=== PATIENT | male | born 1995 | race Caucasian/White ===

== ENCOUNTER 2024-10-31 23:30 | Emergency (ER) | payer BC, SELFPAY ==
[2024-10-31 23:31] VITALS: BMI 33.9
[2024-11-01 00:05] VITALS: BP 143/84; PULSE 64; RESP 18; TEMP 37.1; O2SAT 99
--- NOTE | 2024-11-01 00:30 | EDNOTE_ITS ---
<Statement entered by Yasmin Rinaldi MD - 11/01/24 05:24> As co-signing physician, I was present and available for consult prn. I concur with the plan and care as documented by the midlevel provider. ED Back Injury Pain RME/HPI General Chief Complaint: Back Pain/Injury Stated Complaint: BACK PAIN Time Seen by Provider: 11/01/24 00:11 Source: patient Arrival date/time: 10/31/24 23:30 29-year-old male with past medical history of chronic back [facility] complaining of lower back pain that radiates down towards his left leg. Patient denies any recent injury or trauma. Patient reports has pending x-ray of lower back scheduled for later today. Patient denies any fever, chills, vomiting, bowel or bladder dysfunction, saddle anesthesia, or any other associated symptom. Mode of arrival: ambulatory Limitations: no limitations Related Data Previous Rx's ?Medication ?Instructions ?Recorded cyclobenzaprine 10 mg tablet 10 mg PO TID PRN muscle s pasm #10 11/01/24 tabs ibuprofen 600 mg tablet 600 mg PO Q8H PRN pain #20 t abs 11/01/24 Allergies Allergy/AdvReac Type Severity Reaction Status Date / Time No Known Allergies Allergy Verified 10/31/24 23:31 Review of Systems Review of Systems Systems Reviewed: All systems reviewed, normal except as documented Constitutional Constitutional: Reports system reviewed and no additional complaints, except as documented, Denies body ache(s), Denies chills and Denies fever(s) Eyes Eyes: Reports system reviewed and no additional complaints, except as documented and Denies change in vision ENT Ears, Nose, Mouth, and Throat: Reports system reviewed and no additional complaints, except as documented, Denies disequilibrium, Denies dizziness, Denies sore throat and Denies vertigo Cardiovascular Cardiovascular: Reports system reviewed and no additional complaints, except as documented, Denies chest pain and Denies dyspnea Respiratory Respiratory: Reports system reviewed and no additional complaints, except as documented, Denies chest congestion, Denies cough and Denies dyspnea Gastrointestinal Gastrointestinal: Reports system reviewed and no additional complaints, except as documented, Denies abdominal pain, Denies nausea and Denies vomiting Musculoskeletal Musculoskeletal: Reports system reviewed and no additional complaints, except as documented, Denies abnormal gait, Denies arthralgias and Reports back pain Integumentary/Breasts Skin/Breast: Reports system reviewed and no additional complaints, except as documented, Denies erythema, Denies rash and Denies wounds Neurologic Neurologic: Reports system reviewed and no additional complaints, except as documented, Denies abnormal gait, Denies disequilibrium, Denies dizziness and Denies vertigo Past Medical History Past Medical History CARDIAC: Negative Congestive Heart Failure RESPIRATORY: Negative Chronic Obstructive Pulmonary Disease (COPD) GENITOURINARY: Negative Renal Disease ENDOCRINE: Negative Diabetes Mellitus Type 1 or Diabetes Mellitus Type 2 Social History SMOKING STATUS: Never smoker ED Exam General Limitations: Present no limitations General appearance: Present alert and in no apparent distress Head Head exam: Present atraumatic Eye Eye exam: Present normal appearance, PERRL and EOMI ENT ENT exam: Present normal exam, normal oropharynx and mucous membranes moist Neck Neck exam: Present normal inspection, full ROM and trachea midline Chest Chest inspection: Present normal inspection and symmetric chest wall rise Respiratory Respiratory exam: Present normal lung sounds bilaterally Cardiovascular Cardiovascular exam: Present regular rate, normal rhythm and normal heart sounds Abdominal Exam Abdominal exam: Present soft and normal bowel sounds Extremities Exam Extremities exam: Present normal inspection and full ROM Back Exam Back exam: Present normal inspection, full ROM, straight leg raise (R) and straight leg raise (L); Absent CVA tenderness (R) or CVA tenderness (L) Neurological Exam Neurological exam: Present alert, oriented X3 and CN II-XII intact Psychiatric Psychiatric exam: Present normal affect and normal mood Skin Skin exam: Present warm, dry, intact and normal color Course Quality Measures none Orders Category Date Time Status Diazepam [Valium] Med 11/01/24 00:31 Discontinued 5 mg PO X1 ONE Ketorolac Inj [Toradol Inj] Med 11/01/24 00:31 Discontinued 30 mg IM X1 ONE Vital Signs Vital signs: Vital Signs Temperature 98.7 F 11/01/24 00:05 Pulse Rate 64 11/01/24 00:05 Respiratory Rate 18 11/01/24 00:05 Blood Pressure 143/84 H 11/01/24 00:05 Pulse Oximetry (%) 99 11/01/24 00:05 Oxygen Delivery Method Room Air 11/01/24 00:05 99% room air within normal limits Back Pain / Injury MDM Narrative MDM Narrative:: 29-year-old male with past medical history of chronic back pain presents emergency department complaining of lower back pain that radiates down towards his left leg. Patient denies any recent injury or trauma. Patient reports has pending x-ray of lower back scheduled for later today. Patient denies any fev er, chills, vomiting, bowel or bladder dysfunction, saddle anesthesia, or any other associated symptom. Patient righ and left straight leg raise positive. Patient likely has sciatica. Patient does report has chronic back pain since 2015. Patient denies any dysuria. Patient stable for discharge. Patient data External records reviewed:: [facility] previous records Clinical information provided by:: patient Social determinants that could affect healthcare access:: none Patient has the following chronic illnesses:: See chart How is presenting disease/condition affected by chronic disease/condition?: exacerbated by Evaluation data The following diagnostics were reviewed and interpreted by me:: other (specify) (None) Lab and/or radiology exams considered but not ordered:: None Interpretation Summary: None Medications / Prescriptions Medications or Prescriptions considered but not ordered:: Ordered Medication administrations:: Medication Administration History Discontinued Medications Diazepam (Diazepam 5 Mg Tablet) 5 mg PO X1 ONE Stop: 11/01/24 00:32 Last Admin: 11/01/24 00:45 Dose: 5 mg Documented By: KYRIE Ketorolac Tromethamine (Ketorolac Inj 60 Mg/2 Ml Vial) 30 mg IM X1 ONE Stop: 11/01/24 00:32 Last Admin: 11/01/24 00:45 Dose: 30 mg Documented By: KYRIE Given Consultations Consultation(s) initiated? (list below): No Diagnosis Differential diagnosis back pain/injury: lumbar radiculopathy, sciatica, strain of lumbar region, renal colic, pyelonephritis, thoracic back pain, AAA and discitis Most likely diagnosis given after review of the tests above:: Sciatica Admission Indicated Admission indicated?: not indicated Admission Request Was there a request for admission?: No Disposition Plan Disposition Plan: Discharge Discharge Attestation Discharge Attestation: The patient and all family members were given an opportunity to ask questions and understood the discharge instructions. Discharge instructions specifically effects, indications for sooner follow up or return to the emergency department, and the expected course of current diagnosis. Patient condition: Stable Discharge Plan Plan Patient Disposition: HOME (Self Care) Disposition Comment: Stable Prescriptions/Referrals Prescriptions/Med Rec: New cyclobenzaprine 10 mg tablet 10 mg PO TID PRN (Reason: muscle spasm) Qty: 10 0RF ibuprofen 600 mg tablet 600 mg PO Q8H PRN (Reason: pain) Qty: 20 0RF Problem List Clinical Impression: Sciatica Patient/Caregiver Discharge Instructions Discharge Activity: activity as tolerated Education Materials: Anatomy of a Normal Spine, Self Care Back Day, ED Sciatica Additional Instructions: Take pain medication as prescribed. Follow-up with primary care provider in 2 to 3 days. Return to emergency department for any worsening symptoms or as needed. Print Language: Lithuanian Stand Alone Forms: Urszula Award Info., Patient Portal Info Letter PA/SENIOR ORACLE ADF DEVELOPER Supervising Physician PA/SENIOR ORACLE ADF DEVELOPER Supervising Physician: Dr. Rinaldi
[2024-11-01] MEDS: DIAZEPAM 5 MG TABLET PO (00:45)
[2024-11-01] MEDS: KETOROLAC INJ 60 MG/2 ML VIAL 30 MG IM (00:45)
== END 2024-11-01 00:49 | disposition home or self-care (01) ==
PROVIDERS: Emergency Provider Emergency Medicine; PCP Family Medicine
DX: M54.42 Lumbago with sciatica, left side (principal)
CPT/HCPCS: 96372; 99283; J1885; A9270

== ENCOUNTER 2025-03-03 00:37 | Emergency (ER) | payer OTHER, SELFPAY ==
[2025-03-03 00:38] VITALS: BMI 33.0
[2025-03-03 00:48] VITALS: BP 141/81; PULSE 77; RESP 18; TEMP 37.3; O2SAT 96
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
--- NOTE | 2025-03-03 03:40 | PC.NURSE ---
BERNARDA WRAP APPLIED TO R HAND WITH INSTRUCTIONS ON CARE OF. PT VERBALIZED UNDERSTANDING.
== END 2025-03-03 03:50 | disposition home or self-care (01) ==
PROVIDERS: Emergency Provider Emergency Medicine
DX: S60.221A Contusion of right hand, initial encounter (principal); Y35.811A Legal intervention involving manhandling, law enforcement official injured, initial encounter; Y99.0 Civilian activity done for income or pay
CPT/HCPCS: 73130; 99283

== ENCOUNTER → 2025-03-31 | Outpatient (CLI) | payer OTHER, SELFPAY ==
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
== END | disposition home or self-care (01) ==
LOC: CCTX 06:56
PROVIDERS: PCP Family Medicine; Referring Provider Family Medicine; Visit Provider Family Medicine
DX: S60.221D Contusion of right hand, subsequent encounter (principal); X58.XXXD Exposure to other specified factors, subsequent encounter
CPT/HCPCS: 73200